=== PATIENT | male | born 1940 | race Caucasian/White ===

== ENCOUNTER 2020-01-24 03:19 | Inpatient (IN) ==
--- NOTE | 2020-01-24 03:40 | ERNOTE ---
Neuro HPI ER Record Presenting Symptoms: confusion Time Seen by Provider: 01/24/20 03:31 Source: family, EMS Exam Limitations: clinical condition Immunizations: IMMUNIZATION HX Immunizations Up to Date Yes History of Influenza Vaccine No Hx Pneumococcal Vaccination No Allergies/Adverse Reactions: Allergies Allergy/AdvReac Type Severity Reaction Status Date / Time penicillin G Allergy Verified 07/10/17 16:43 Penicillins Allergy Verified 07/10/17 16:43 Home Medications: HOME MEDICATIONS Aspirin [Aspirin EC] 81 mg PO DAILY 01/01/16 [Last Taken Unknown] Esomeprazole Magnesium [Nexium 24Hr] 20 mg PO DAILY 01/01/16 [Last Taken Unknown] Tamsulosin HCl [Flomax] 0.4 mg PO HS 01/01/16 [Last Taken Unknown] Propranolol HCl [Inderal Xl] 120 mg PO 01/24/20 [Last Taken Unknown] Topiramate [Topamax] 25 mg PO 01/24/20 [Last Taken Unknown] - History of Present Illness Narrative: Patient brought to the ER via EMS with report of altered mental status. Patient was last seen normal at around 2200 last night. His woke up early this morning and found him not in bed after looking around they found him out in the garage with multiple layers of clothing on and confused. Onset: cannot confirm onset, >3 hours Severity: moderate - Character of Deficits Baseline Cognition: Present: alert but confused - Oriented only to self Prior Treament: Reports: recently seen, treated by physician - Given azithromycin by his primary care physician for a "viral syndrome" Review of Systems - Review of Systems Constitutional: Present: recent illness, chills ENT: Absent: nose congestion, nasal drainage Respiratory: Absent: shortness of breath, cough Cardiology: Absent: chest pain, palpitations Gastrointestinal/Abdominal: Absent: nausea, vomiting Genitourinary: Absent: frequency, dysuria Musculoskeletal: Absent: back pain, muscle pain, neck pain, joint pain Skin: Absent: rash Neurological: Present: See HPI. Absent: headache, dizziness/light-headedness Endocrine: Absent: excessive sweating Medical History (Last Reviewed 01/24/20 @ 03:37 by Feliz Santillan DO) GERD (gastroesophageal reflux disease) Tremors of nervous system Surgical History: Surgical History (Last Reviewed 01/24/20 @ 03:37 by Feliz Santillan DO) History of appendectomy Hx of hernia repair Family History: Family History (Last Updated 01/24/20 @ 03:44 by Monisha Chin RN) Other Family history non-contributory Social History: (Last Reviewed 01/24/20 @ 03:38 by Feliz Santillan DO) Tobacco: Smoking Status: Former smoker Alcohol: alcohol intake: current Alcohol type: beer alcohol intake frequency: 0-2 drinks per day Substance Use: substance use type: does not use Physical Exam - Physical Exam General Appearance: Present: wd/wn, alert, no apparent distress Head Exam: Present: normal inspection, no evidence of injury Eye Exam: Normal inspection: bilateral, PERRL: bilateral, EOMI: bilateral Ears, Nose, Throat: Present: normal ENT inspection Neck: Present: normal inspection, nontender, supple Respiratory: Present: no respiratory distress, normal breath sounds, lungs clear Cardiovascular/Chest: Present: regular rate, rhythm, no murmur Gastrointestinal/Abdominal: Present: normal bowel sounds, nontender, nondistended, soft Back Exam: Present: normal inspection, normal range of motion Extremity Exam: Present: normal inspection, normal range of motion, no edema Neurological Exam: Present: alert, oriented - Only to self, normal mood/affect, no motor/sensory deficits, facial droop - Questionable left eyelid droop but otherwise appears normal Skin Exam: Present: normal color, warm/dry Lymphatic Exam: Present: no adenopathy Stacia Coma Scale - Assess Eye Opening: Spontaneous Motor: Obeys Commands Verbal: Oriented - Total Coma Scale Total: 15 Initial Stroke Assessment - Date/Time of assessment Stroke Scale Date: 01/24/20 Stroke Scale Time: 03:39 - NIH Stroke Scale Level of Consciousness: Alert LOC Questions (Year and Age): Answers neither correctly LOC Commands (open/close eyes/fist): Performs both correctly Lateral Gaze Paresis: None Visual Field Loss: No visual loss Facial Palsy: Normal movement Right Arm Motor (10 sec hold): No drift Left Arm Motor (10 sec hold): No drift Right Leg Motor (5 sec hold): No drift Left Leg Motor (5 sec hold): No drift Limb Ataxia (finger/nose heel/kerr): Absent Sensory Loss (pinprick arms/legs/face): No sensory loss Language Aphasia (description/naming/reading): No aphasia; normal Dysarthria (speech clarity): Normal articulation Neglect Inattention (visual/tactile/auditory/spatial/person): No neglect Initial Stroke Scale Score:: 2 Progress - Results and Orders Patient's Lab Results:: I have reviewed the patient's lab results. - Vital Signs Patient's Vital Signs:: I have reviewed the patient's vital signs. Vital Signs: Vital Signs 01/24/20 03:30 Temperature 36.8 C Pulse Rate 67 Respiratory Rate 25 H Blood Pressure 132/73 O2 Sat by Pulse Oximetry 96 - EKG EKG #1 EKG: atrial fibrillation, nonspecific ST T wave changes EKG read: Interp. by me - CT/Ultrasound CT/Ultrasound Narrative: CT head: 1. No intracranial hemorrhage, mass-effect or midline shift. 2. No acute cerebral edema or infarct noted. 3. Generalized cerebral atrophy and periventricular white matter disease. 4. No acute sinusitis or mastoiditis. - Progress/Reassessment Chief Complaint: Altered Mental Status Progress:: Unchanged Progress Note-Subjective: 01/24/20 05:33 Return to the patient after he had his liter of IV fluids. He now could tell us the month of the year and that he was in the hospital. Discussed admission for new onset atrial fibrillation and altered mental status with the patient's and she expressed agreement 01/24/20 05:[address] Hernandez and he agrees with admission and asked me to put in an order for an MRI. Covid testing pending 01/24/20 07:38 Patient's Covid test came back positive. Dr. Ramírez has been covering for Dr. Alexandra is Covid patients so I talked with Dr. Ramírez and he agrees with admission. MRI was scheduled for 1130 this morning. Departure Clinical Impression: Acute alteration in mental status, COVID-19 Atrial fibrillation Qualifiers: Atrial fibrillation type: unspecified Qualified Code(s): I48.91 - Unspecified atrial fibrillation - Departure Disposition: Still a patient Condition: Stable
[2020-01-24 03:55] LABS: Hematocrit 38.4 % (42.0-52.0); Hemoglobin 12.9 gm/dL (13.5-18.0); Mean Cell Volume 97.5 fl (78-100); Mean Corpuscular Hemoglobin 32.7 pg (27-31); Mean Corpuscular Hgb Conc 33.6 g/dl (32-36); Mean Platelet Volume 9.8 fl (8-11.3); Neutrophil # 2.4 K/mm3 (1.3-6.0); Neutrophil % 70.1 % (42-75.0); Platelet Count 93 K/mm3 (150-450); Red Blood Count 3.94 M/mm3 (4.7-6.0); Red Cell Distribution Width 12.6 % (11.5-14.0); White Blood Count 3.5 K/mm3 (4.0-10.5)
[2020-01-24 04:03] LABS: Albumin * 3.3 gm/dl (3.4-5.0); Anion Gap 17.6 mmol/L (6.8-13.8); BUN/Creatinine Ratio 21.4 (9.0-21.6); Bilirubin, Total 0.5 mg/dL (0.0-1.1); Ca. Corrected For Albumin 9.2 mg/dL (8.4-10.2); Carbon Dioxide 18.2 mmol/L (24-32.6); Potassium 3.8 mmol/L (3.4-4.6); Total Protein 6.1 gm/dL (6.2-8.2)
[2020-01-24] MEDS ORDERED: NORMAL SALINE 1,000 ML IV ONE (04:22)
[2020-01-24 04:23] LABS: Urine Bilirubin Negative (NEGATIVE); Urine Blood Negative /ul (NEGATIVE); Urine Ketone Negative (NEGATIVE); Urine Nitrite Negative (NEGATIVE); Urine Protein Negative (NEGATIVE); Urine Specific Gravity 1.025 SP.GR. (1.005-1.030); Urine Urobilinogen Normal (NORMAL)
[2020-01-24 04:26] LABS: Urine Appearance Clear (CLEAR); Urine Color Yellow
[2020-01-24 04:28] LABS: Urine Bacteria None Seen; Urine RBC None Seen /hpf (0-5); Urine WBC None Seen /hpf (0-5)
[2020-01-24] MEDS ORDERED: ENOXAPARIN SODIUM 80 MG/0.8 ML DISP.SYRIN SC ONE (05:32)
--- NOTE | 2020-01-24 09:50 | HP ---
Chief Complaint - Chief Complaint Date of Service: 01/24/20 Time of Service: 09:49 Chief Complaint: Weakness and confusion History of Present Illness: Tano is a 79 yo male that presented to the [facility] ER with confusion and weakness. His reports that they went to bed and he seemed his usual self. She awoke around 2am to find that he wasn't in bed. She searched the home to find him standing in the garage with the garage door open. He was confused and did not know where he was at. She tried to get him in the house but reports he was very weak in the legs and had difficulty walking. She did not notice and right or left sided difference. She felt that his upper extremity strength was fairly normal. She brought him to the [facility] ER for evaluation. A head CT was completed in the ER and was normal. He was still confused but appeared to be improving. ER contacted medicine contract clerk to admit for possible stroke and further work-up, prior to admission he was COVID tested and it returned positive. He reports that he has had a little cough and was seen by his primary care provider3 days ago and started on azithromycin for upper respiratory infection. He has taken two days of azithromycin. He reports mild fever and fatigue. HE denies shortness of breath. Medical History (Last Reviewed 01/24/20 @ 03:37 by Feliz Santillan DO) GERD (gastroesophageal reflux disease) Tremors of nervous system Surgical History: Surgical History (Last Reviewed 01/24/20 @ 03:37 by Feliz Santillan DO) History of appendectomy Hx of hernia repair Family History: Family History (Last Updated 01/24/20 @ 03:44 by Monisha Chin RN) Other Family history non-contributory Social History: (Last Reviewed 01/24/20 @ 03:38 by Feliz Santillan DO) Tobacco: Smoking Status: Former smoker Alcohol: alcohol intake: current Alcohol type: beer alcohol intake frequency: 0-2 drinks per day Substance Use: substance use type: does not use Review Of Systems (GEN) - Review of Systems Generalized/Overall Review: Present: Weakness, Fever, Fatigue. Absent: Chills EENTM: Present: No Symptoms Reported Respiratory: Present: Cough. Absent: Shortness of Breath Cardiac: Absent: Chest Pain, Edema Abdominal: Absent: Nausea, Vomiting Genitourinary: Absent: Burning, Frequency Musculoskeletal: Present: No Symptoms Reported Neurological: Present: Weakness. Absent: Numbness, Tremors Skin: Present: No Symptoms Reported Endocrine: Present: No Symptoms Reported Immunizations: IMMUNIZATION HX Immunizations Up to Date Yes History of Influenza Vaccine Yes Hx Pneumococcal Vaccination No Allergies/Adverse Reactions: Allergies Allergy/AdvReac Type Severity Reaction Status Date / Time penicillin G Allergy Verified 07/10/17 16:43 Penicillins Allergy Verified 07/10/17 16:43 Home Medications: HOME MEDICATIONS Aspirin [Aspirin EC] 81 mg PO DAILY 01/01/16 [Last Taken Unknown] Esomeprazole Magnesium [Nexium 24Hr] 20 mg PO DAILY 01/01/16 [Last Taken Unknown] Tamsulosin HCl [Flomax] 0.4 mg PO HS 01/01/16 [Last Taken Unknown] Azithromycin [Zithromax Tri-Marcelino] 500 mg PO 01/24/20 [Last Taken 01/23/20 500] Propranolol HCl [Inderal Xl] 120 mg PO 01/24/20 [Last Taken Unknown] Topiramate [Topamax] 25 mg PO 01/24/20 [Last Taken Unknown] Exam - Exam Vital Signs: Vital Signs - Last Taken Temp 36.7 C 01/24/20 09:25 Pulse 58 L 01/24/20 09:25 Resp 23 H 01/24/20 09:25 BP 114/62 01/24/20 09:25 Pulse Ox 100 01/24/20 09:25 Constitutional: Present: Alert, Oriented x3, Cooperative, Other - speech and movements are slowed ENT Exam: Present: hearing grossly normal Eye Exam: bilateral eye: normal inspection Respiratory: Present: no respiratory distress, crackles - left lung Cardiovascular/Chest: Present: regular rate, rhythm, no edema Peripheral Pulses: radial (R): 2+, radial (L): 2+ Abdomen: Present: Normal bowel sounds, soft, nontender, nondistended Extremity: Present: normal inspection 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, alert, normal mood/affect, motor weakness - LE 4/5 but equal bilaterally, other - speech and motions are slowed Appearance: Present: appropriate appearance, appropriate insight Eye contact: Present: cooperative, good eye contact Diagnostic Studies: Abnormal Lab Results 01/24/20 01/24/20 01/24/20 Range/Units 03:45 03:45 05:45 WBC 3.5 L (4.0-10.5) K/mm3 RBC 3.94 L (4.7-6.0) M/mm3 Hgb 12.9 L (13.5-18.0) gm/dL Hct 38.4 L (42.0-52.0) % MCH 32.7 H (27-31) pg Plt Count 93 L (150-450) K/mm3 Lymphocytes # 0.77 L (1.5-3.5) k/mm3 Carbon Dioxide 18.2 L (24-32.6) mmol/L Anion Gap 17.6 H (6.8-13.8) mmol/L BUN 24 H (6-23) mg/dL Random Glucose 114 H (70-110) mg/dL Total Protein 6.1 L (6.2-8.2) gm/dL Albumin 3.3 L (3.4-5.0) gm/dl SARS-CoV-2 (PCR) Detected H (NotDetected) Laboratory Results WBC 3.5 K/mm3 (4.0-10.5) L 01/24/20 03:45 RBC 3.94 M/mm3 (4.7-6.0) L 01/24/20 03:45 Hgb 12.9 gm/dL (13.5-18.0) L 01/24/20 03:45 Hct 38.4 % (42.0-52.0) L 01/24/20 03:45 MCV 97.5 fl (78-100) 01/24/20 03:45 MCH 32.7 pg (27-31) H 01/24/20 03:45 MCHC 33.6 g/dl (32-36) 01/24/20 03:45 RDW 12.6 % (11.5-14.0) 01/24/20 03:45 Plt Count 93 K/mm3 (150-450) L 01/24/20 03:45 MPV 9.8 fl (8-11.3) 01/24/20 03:45 Immature Gran % (Auto) 0.30 % (0.001-0.429) 01/24/20 03:45 Immature Gran # (Auto) 0.01 K/mm3 (0.000-0.0310) 01/24/20 03:45 Neutrophils % 70.1 % (42-75.0) 01/24/20 03:45 Lymphocytes % 22.1 % (20-51) 01/24/20 03:45 Monocytes % 6.9 % (0.0-9) 01/24/20 03:45 Eosinophils % 0.3 % (0.0-3.0) 01/24/20 03:45 Basophils % 0.3 % (0.0-1.0) 01/24/20 03:45 Nucleated RBC % 0.0 k/mm3 (0-1) 01/24/20 03:45 Neutrophils # 2.4 K/mm3 (1.3-6.0) 01/24/20 03:45 Lymphocytes # 0.77 k/mm3 (1.5-3.5) L 01/24/20 03:45 Monocytes # 0.2 k/mm3 (0.0-1.0) 01/24/20 03:45 Eosinophils # 0.0 k/mm3 (0.0-0.7) 01/24/20 03:45 Absolute Basophils 0.0 k/mm3 (0.0-0.1) 01/24/20 03:45 Sodium 134 mmol/L (132-142) 01/24/20 03:45 Plasma Sodium 134 mmol/L (130-142) 01/24/20 03:45 Potassium 3.8 mmol/L (3.4-4.6) 01/24/20 03:45 Chloride 102 mmol/L (97-106) 01/24/20 03:45 Carbon Dioxide 18.2 mmol/L (24-32.6) L 01/24/20 03:45 Anion Gap 17.6 mmol/L (6.8-13.8) H 01/24/20 03:45 BUN 24 mg/dL (6-23) H 01/24/20 03:45 Creatinine 1.12 mg/dL (0.4-1.4) 01/24/20 03:45 Est GFR (Non-Af Amer) 67 mL/min (60-130) 01/24/20 03:45 BUN/Creatinine Ratio 21.4 (9.0-21.6) 01/24/20 03:45 Random Glucose 114 mg/dL (70-110) H 01/24/20 03:45 Calcium 9.0 mg/dL (7.9-10.9) 01/24/20 03:45 Calcium Adj for Albumin 9.2 mg/dL (8.4-10.2) 01/24/20 03:45 Total Bilirubin 0.5 mg/dL (0.0-1.1) 01/24/20 03:45 AST 29 U/L (0-48) 01/24/20 03:45 ALT 31 U/L (19-67) 01/24/20 03:45 Alkaline Phosphatase 112 U/L (50-170) 01/24/20 03:45 Total Protein 6.1 gm/dL (6.2-8.2) L 01/24/20 03:45 Albumin 3.3 gm/dl (3.4-5.0) L 01/24/20 03:45 Urine Color Yellow 01/24/20 04:18 Urine Appearance Clear (CLEAR) 01/24/20 04:18 Urine pH 6.0 pH (5.0-7.0) 01/24/20 04:18 Ur Specific [place] 1.025 SP.GR. (1.005-1.030) 01/24/20 04:18 Urine Protein Negative mg/dL (NEGATIVE) 01/24/20 04:18 Urine Glucose (UA) Negative mg/dL (NEGATIVE) 01/24/20 04:18 Urine Ketones Negative mg/dL (NEGATIVE) 01/24/20 04:18 Urine Blood Negative /ul (NEGATIVE) 01/24/20 04:18 Urine Nitrate Negative (NEGATIVE) 01/24/20 04:18 Urine Bilirubin Negative mg/dl (NEGATIVE) 01/24/20 04:18 Urine Urobilinogen Normal EU/dl (NORMAL) 01/24/20 04:18 Ur Leukocyte Esterase Negative /ul (NEGATIVE) 01/24/20 04:18 Urine RBC None seen /hpf (0-5) 01/24/20 04:18 Urine WBC None seen /hpf (0-5) 01/24/20 04:18 Ur Epithelial Cells None seen /hpf (0-5) 01/24/20 04:18 Urine Bacteria None seen (NONE) 01/24/20 04:18 Urine Culture Comments No culture indicated 01/24/20 04:18 SARS-CoV-2 (PCR) Detected (NotDetected) H 01/24/20 05:45 Assessment/Plan - Narrative Narrative: Tano is a 79 yo male with acute confusion and slowing. He was admitted with suspected stroke but COVID testing returned positive. He is admitted to acute inpatient status in COVID precautions. He was evaluated with Brain MRI that showed left basal ganglia CVA. He will be placed on plavix and crestor. He will have MRA of head and neck to evaluate cause of CVA. Will consu lt PT for evaluation and strengthening. Will monitor respiratory status due to covid, no hypoxia at this time. Will continue Azithromycin. - Assessment/Plan (1) Basal ganglia infarction Problem: Acute (2) COVID-19 Problem: Acute
[2020-01-24] MEDS ORDERED: ASPIRIN 81 MG TABLET.DR PO SCH (10:00)
[2020-01-24] MEDS: AZITHROMYCIN 250 MG TABLET PO SCH (10:39)
[2020-01-24] MEDS: PROPRANOLOL HCL 60 MG CAPSULE.SA PO SCH (10:39)
[2020-01-24] MEDS: PANTOPRAZOLE SODIUM 20 MG TABLET.DR PO SCH (10:39)
[2020-01-24] MEDS: CLOPIDOGREL BISULFATE 75 MG TABLET PO SCH (16:10)
[2020-01-24] MEDS: ROSUVASTATIN CALCIUM 20 MG TABLET PO SCH (21:28)
[2020-01-24] MEDS: TAMSULOSIN HCL 0.4 MG CAP.SR.24H PO SCH (21:28)
[2020-01-25] MEDS ORDERED: METOCLOPRAMIDE HCL 10 MG TABLET PO ONE (07:31)
[2020-01-25] MEDS ORDERED: BACLOFEN 10 MG TABLET PO ONE (07:33)
[2020-01-25] MEDS ORDERED: BACLOFEN 10 MG TABLET PO SCH (09:15)
[2020-01-25] MEDS ORDERED: METOCLOPRAMIDE HCL 10 MG TABLET PO SCH (09:15)
[2020-01-25] MEDS: AZITHROMYCIN 250 MG TABLET PO SCH (09:30)
[2020-01-25] MEDS: CLOPIDOGREL BISULFATE 75 MG TABLET PO SCH (09:30)
[2020-01-25] MEDS: PANTOPRAZOLE SODIUM 20 MG TABLET.DR PO SCH (09:30)
[2020-01-25] MEDS: PROPRANOLOL HCL 60 MG CAPSULE.SA PO SCH (09:31)
[2020-01-25] MEDS: APIXABAN 5 MG TABLET PO SCH ×2 (13:20→20:12)
--- NOTE | 2020-01-25 15:45 | PN ---
Subjective - Date and Time Seen Date: 01/25/20 Time: 15:15 Subjective Narrative: Tano reports feeling well and he would like to go home. He continues to cough and he continues to have slowed thought and speech. Objective - Vitals Vitals: Last Vital Signs Temp 36.8 C 01/25/20 14:54 Pulse 70 01/25/20 14:54 Resp 16 01/25/20 14:54 BP 124/83 01/25/20 14:54 Pulse Ox 98 01/25/20 14:54 - Exam Constitutional: Present: Alert, Oriented x3, Cooperative, Other - movements, thoughts, and speech is slowed Respiratory: Present: crackles - left lung Cardiovascular/Chest: Present: regular rate, rhythm, irregularly irregular Abdomen: Present: Normal bowel sounds, soft, nontender, nondistended Skin Exam: Present: normal color, warm/dry, no cyanosis Eye contact: Present: cooperative, good eye contact, decreased rate of speech Assessment/Plan Plan Narrative: Tano has 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 He is now anticoagulated on eliquis and on a statin. His rate is controlled. He has COVID19 but appears to have no respiratory distress. PT, ST, and OT have been consulted. He has significant slowing of his thought process which is impaired and he would have difficulty with home ADLs. Continue to work with therapies and see if he is a candidate for inpatient stroke rehab vs home discharge. - Problems/Diagnosis (1) Basal ganglia infarction Problem: Acute (2) COVID-19 Problem: Acute (3) Atrial fibrillation Problem: Acute Qualifiers: Atrial fibrillation type: unspecified Qualified Code(s): I48.91 - Unspecified atrial fibrillation
[2020-01-25] MEDS: ROSUVASTATIN CALCIUM 20 MG TABLET PO SCH (20:12)
[2020-01-25] MEDS: TAMSULOSIN HCL 0.4 MG CAP.SR.24H PO SCH (20:12)
[2020-01-26] MEDS: PANTOPRAZOLE SODIUM 20 MG TABLET.DR PO SCH (06:52)
[2020-01-26] MEDS: APIXABAN 5 MG TABLET PO SCH (08:45)
[2020-01-26] MEDS: AZITHROMYCIN 250 MG TABLET PO SCH (08:45)
[2020-01-26] MEDS: PROPRANOLOL HCL 60 MG CAPSULE.SA PO SCH (08:45)
--- NOTE | 2020-01-26 13:03 | DS ---
(1) Basal ganglia infarction Problem: Acute (2) COVID-19 Problem: Acute (3) Atrial fibrillation Problem: Acute Qualifiers: Atrial fibrillation type: unspecified Qualified Code(s): I48.91 - Unspecified atrial fibrillation Date of Discharge:: 01/26/20 Hospital Course: Tano is a 79 yo male that was admitted with sudden onset of confusion, weakness, and generalized slowing of behaviors. At the time of admission he was tested for COVID and positive. He was treated with azithromycin for COVID19 but his respiratory status was overall good and not an issue during hospitalization. He had a head CT in the ER which showed no acute changes, but a Brain MRI on the following day of admission showed left basal ganglia infarct. He was also found to be in atrial fibrillation which is a new onset. Prior to admission he was on a daily aspirin 81mg. This was discontinued and he was placed on eliquis for atrial fibrillation and anticoagulation for stroke and future stroke prevention. He was also started on Crestor 20mg HS. PT, OT, and ST were consulted. He had no focal loss but generalized weakness and generalized slowing of cognitive processes. Over time he improved and today his function is improved enough that he may be discharged to home. He will have [facility] home health with PT, OT, and ST. He has no swallowing or speech deficits today. His thought process is a little slower than normal, but much improved from admission. A face to face was completed at discharge with the purpose of setting up home health. He needs nursing to monitor vitals and overall condition, including vitals to monitor atrial fibrillation. He also needs PT, OT, and ST due to left basal ganglia CVA. Procedures Performed: none Results and Findings: Lab Pending Results 01/24/20 03:45: WBC 3.5 L, RBC 3.94 L, Hgb 12.9 L, Hct 38.4 L, MCV 97.5, MCH 32.7 H, MCHC 33.6, RDW 12.6, Plt Count 93 L, MPV 9.8, Immature Gran % (Auto) 0.30, Immature Gran # (Auto) 0.01, Neutrophils % 70.1, Lymphocytes % 22.1, Monocytes % 6.9, Eosinophils % 0.3, Basophils % 0.3, Nucleated RBC % 0.0, Neutrophils # 2.4, Lymphocytes # 0.77 L, Monocytes # 0.2, Eosinophils # 0.0, Absolute Basophils 0.0 01/24/20 03:45: Sodium 134, Plasma Sodium 134, Potassium 3.8, Chloride 102, Carbon Dioxide 18.2 L, Anion Gap 17.6 H, BUN 24 H, Creatinine 1.12, Est GFR (Non-Af Amer) 67, BUN/Creatinine Ratio 21.4, Random Glucose 114 H, Calcium 9.0, Calcium Adj for Albumin 9.2, Total Bilirubin 0.5, AST 29, ALT 31, Alkaline Phosphatase 112, Total Protein 6.1 L, Albumin 3.3 L 01/24/20 04:18: Urine Color Yellow, Urine Appearance Clear, Urine pH 6.0, Ur Specific [place] 1.025, Urine Protein Negative, Urine Glucose (UA) Negative, Urine Ketones Negative, Urine Blood Negative, Urine Nitrate Negative, Urine Bilirubin Negative, Urine Urobilinogen Normal, Ur Leukocyte Esterase Negative, Urine RBC None seen, Urine WBC None seen, Ur Epithelial Cells None seen, Urine Bacteria None seen, Urine Culture Comments No culture indicated 01/24/20 05:45: SARS-CoV-2 (PCR) Detected H Discharge Location: Home Disposition: Home Health Service Home Health Agency: [facility] Home Health Condition: Stable Face to Face Encounter completed per CMS Guidelines: Yes Discharge Activity: Activity as tolerated Discharge Diet: General/regular food Referrals: Jorge Lucas DO [Family Provider] - One Week Problem Oriented Discharge Instructions to Patient/Family: Ischemic Stroke, [id number], Atrial Fibrillation, [id number] Additional Patient Instructions (free text): [facility] New at discharge for therapies, please call and fax discharge information to them. Prescriptions (Any new or edited meds): Rosuvastatin Calcium [Crestor] 20 mg PO HS #30 tab Transmission Status: Pending to [place], [place] Apixaban [Eliquis] 5 mg PO BID #60 tab Transmission Status: Pending to [place], [place] Complete Home Medications List: Complete Home Medication List: Esomeprazole Magnesium [Nexium 24Hr] 20 mg PO DAILY 01/01/16 Tamsulosin HCl [Flomax] 0.4 mg PO HS 01/01/16 Propranolol HCl [Inderal Xl] 120 mg PO 01/24/20 Topiramate [Topamax] 25 mg PO 01/24/20 Apixaban [Eliquis] 5 mg PO BID #60 tab 01/26/20 Rosuvastatin Calcium [Crestor] 20 mg PO HS #30 tab 01/26/20
[2020-01-26 14:46] VITALS: BP 116/88
== END 2020-01-26 14:32 | disposition home health service (06) | DRG 64 ==
LOC: ER 03:19 → MS 07:30
PROVIDERS: ADMIT Family Medicine; ATTEND Family Medicine
DX: R53.1 Weakness; R41.82 Altered mental status, unspecified; I48.91 Unspecified atrial fibrillation; U07.1 COVID-19; I63.81 Other cerebral infarction due to occlusion or stenosis of small artery; R47.9 Unspecified speech disturbances